=== PATIENT | male | born 1970 | race Caucasian/White ===

== ENCOUNTER 2018-10-04 08:15 | Emergency (ER) | payer OTHER ==
[2018-10-04 08:51] VITALS: BP 124/86
--- NOTE | 2018-10-04 08:56 | UC ---
Eye Complaint HPI - HPI Summary HPI Summary: Per roll panner: "Pt states that R eye has been sore for about a week, has been flushing it and that doesn't seem to help. No itchiness. No yellow discharge from eye, but seems to be tearing more than usual. Pt not able to see anything in his eye that would be causing it. The L eye is fine." -he was grinding something 1 week ago and felt like something went into his eye. hurts medially. -no diplopia or change in vision - History of Current Complaint Chief Complaint: UCEye Stated Complaint: RIGHT EYE CONCERN Time Seen by Provider: 10/04/18 08:55 Pain Intensity: 0 - Allergies/Home Medications Allergies/Adverse Reactions: Allergies Allergy/AdvReac Type Severity Reaction Status Date / Time No Known Allergies Allergy Verified 10/04/18 08:51 PMH/Surg Hx/FS Hx/Imm Hx Previously Healthy: Yes - Surgical History Surgical History: Yes Surgery Procedure, Year, and Place: hernia repair x 2 - Family History Known Family History: Positive: Hypertension - Social History Alcohol Use: None Substance Use Type: Marijuana Smoking Status (MU): Heavy Every Day Tobacco Smoker Type: Cigarettes Amount Used/How Often: 1/2 ppd Review of Systems All Other Systems Reviewed And Are Negative: Yes Constitutional: Positive: Negative Eyes: Positive: Eye Redness, Other - see above ENT: Positive: Negative Respiratory: Positive: Negative Cardiovascular: Positive: Negative Gastrointestinal: Positive: Negative Neurovascular: Positive: Negative Musculoskeletal: Positive: Negative Neurological: Positive: Negative Psychological: Positive: Negative Is Patient Immunocompromised?: No Physical Exam Triage Information Reviewed: Yes Appearance: Well-Appearing, No Pain Distress, Well-Nourished Vital Signs: Initial Vital Signs Temp 97.9 F 10/04/18 08:46 Pulse 75 10/04/18 08:46 Resp 18 10/04/18 08:46 BP 124/86 10/04/18 08:46 Pulse Ox 97 10/04/18 08:46 Eyes: Positive: Other: - small black FB located at 3 o'clock at periphery of iris w/ some mild scleral injection running medially. -floresein wood's lamp exam done after FB removed shows small 1 mm area of uptake. there is no bleeding of stain. no perforation. no bleeding ENT Exam: Normal ENT: Positive: Pharynx normal Neck exam: Normal Neck: Positive: Supple, Nontender, No Lymphadenopathy Respiratory Exam: Normal Respiratory: Positive: Lungs clear, Normal breath sounds, No respiratory distress, No accessory muscle use Cardiovascular Exam: Normal Cardiovascular: Positive: RRR Musculoskeletal Exam: Normal Neurological Exam: Normal Psychological Exam: Normal Skin Exam: Normal Eye Complaint Course/Dx - Course Course Of Treatment: -rt eye was tretaed w 1 gtt tetracaine. FB was very easily removed w/ tip of swab. tolerated very well. see exam for wood's lamp exam. FB was ~ 1 mm big. -pt prefers to see local ophtho - info given below. stressed improatnce of f/u in 2-3 days w/ pt. he understood em well adn is very agreeable. - Differential Dx/Diagnosis Differential Diagnosis/HQI/PQRI: Conjunctivitis, Corneal Abrasion, Foreign Body , Penetrating Injury Provider Diagnosis: Foreign body of right eye Discharge - Sign-Out/Discharge Documenting (check all that apply): Patient Departure All imaging exams completed and their final reports reviewed: No Studies - Discharge Plan Condition: Stable Disposition: HOME Prescriptions: Erythromycin TOPICAL GEL* [Erythromycin OPTH OINT*] 1 applic TOPICAL TID 5 Days #1 oint Patient Education Materials: Eye Foreign Body (ED) Referrals: No Primary Care Phys,NOPCP [Primary Care Provider] - Yen Avery MD [Medical Doctor] - 3 Days Additional Instructions: Please make sure to follow up with the eye doctor as directed. The antibiotic ointment will help prevent any infection adn will help sooth the eye. There is a little scratch in your cornea from where the foreign body was embedded. You should gop to the ER with any change in your vision or pain. - Billing Disposition and Condition Condition: STABLE Disposition: Home
[2018-10-04] MEDS ORDERED: Tetracaine 0.5% OPTH.SOL 4 ML* 1 DROP BTL RIGHT EYE ONE (09:13)
[2018-10-04] MEDS ORDERED: Fluorescein Sodium TOPICAL* 1 MG TEST STRIP OPHTHALMIC ONE (09:13)
[2018-10-04] MEDS ORDERED: Erythromycin OPTH OINT* APPLIC OINT RIGHT EYE ONE (09:14)
== END 2018-10-04 09:38 | disposition home or self-care (01) ==
LOC: UCCORT 08:15
DX: T15.91XA Foreign body on external eye, part unspecified, right eye, initial encounter (principal); X58.XXXA Exposure to other specified factors, initial encounter; Y92.9 Unspecified place or not applicable
CPT/HCPCS: 65220; 99202; A9270-GY; G0463

== ENCOUNTER 2019-04-11 08:15 | Emergency (ER) | payer OTHER ==
[2019-04-11 08:38] VITALS: BP 145/95
[2019-04-11] MEDS ORDERED: Tetracaine 0.5% OPTH.SOL 4 ML* 1 DROP BTL LEFT EYE ONE (09:01)
--- NOTE | 2019-04-11 10:41 | UC ---
Eye Complaint HPI - HPI Summary HPI Summary: Pt presents with c/o of FB in left eye that occurred last evening. 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 Pt states that his tetanus is UTD. - History of Current Complaint Chief Complaint: UCEye Stated Complaint: LEFT EYE FOREIGN MATERIAL Time Seen by Provider: 04/11/19 08:56 Hx Obtained From: Patient Onset/Duration: Sudden Onset, Still Present Timing: Constant Severity Initially: Moderate Severity Currently: Moderate Pain Intensity: 0 Pain Scale Used: 0-10 Numeric Location of Injury: Other - cornea Character: Sharp, Foreign Body Sensation Aggravating Factor(s): Light, Blinking Associated Signs And Symptoms: Positive: Drainage (Clear) Related History: Foreign Body - Risk Factors Penetrating Injury Risk Factor: Projectile Globe Rupture Risk Factors: Negative Acute Glaucoma Risk Factors: Negative Optic Artery Occlusion Risk Factors: Negative - Allergies/Home Medications Allergies/Adverse Reactions: Allergies Allergy/AdvReac Type Severity Reaction Status Date / Time No Known Allergies Allergy Verified 04/11/19 08:38 PMH/Surg Hx/FS Hx/Imm Hx Previously Healthy: Yes - Surgical History Surgical History: Yes Surgery Procedure, Year, and Place: hernia repair x 2 - Family History Known Family History: Positive: Hypertension - Social History Occupation: Employed Full-time Lives: With Family Alcohol Use: None Substance Use Type: Excessive Caffeine, Marijuana Substance Use Comment - Amount & Last Used: occasionally smoke Smoking Status (MU): Heavy Every Day Tobacco Smoker Type: Cigarettes Amount Used/How Often: 1/2 ppd Have You Smoked in the Last Year: Yes - Immunization History Vaccination Up to Date: Yes Review of Systems All Other Systems Reviewed And Are Negative: Yes Constitutional: Positive: Negative Skin: Positive: Negative Eyes: Positive: Drainage - clear, Other - FB left eye ENT: Positive: Negative Respiratory: Positive: Negative Cardiovascular: Positive: Negative Gastrointestinal: Positive: Negative Genitourinary: Positive: Negative Motor: Positive: Negative Neurovascular: Positive: Negative Musculoskeletal: Positive: Negative Neurological: Positive: Negative Psychological: Positive: Negative Is Patient Immunocompromised?: No Physical Exam Triage Information Reviewed: Yes Appearance: Well-Appearing Vital Signs: Initial Vital Signs Temp 98.6 F 04/11/19 08:33 Pulse 74 04/11/19 08:33 Resp 18 04/11/19 08:33 BP 145/95 04/11/19 08:33 Pulse Ox 98 04/11/19 08:33 Vital Signs Reviewed: Yes Eye Exam: Other Eyes: Positive: Other: - FB visible on left eye/ iris ~ 9 o'clock position ENT Exam: Normal Neck exam: Normal Respiratory: Positive: No respiratory distress Musculoskeletal Exam: Normal Neurological Exam: Normal Psychological Exam: Normal Skin Exam: Normal Eye Complaint Course/Dx - Course Course Of Treatment: left eye I placed 3 gtts of tetracaine opthalmic drops, attempted to remove FB with Q-tip and 18 guage needle. with 18 gauge needle, ~ 1/2 of metal was removed. I discussed this with the pt and I tried to get him an appointment at Dr. Walker' s office. They do not accept his insurance and the pt could not afford to pay out of pocket. Pt was then referred to ER in [place] and pt stated he would prefer to not go and would f/u with local carroting machine operator on Saturday and go to ER if symptoms worsen and pain intolerable. - Differential Dx/Diagnosis Differential Diagnosis/HQI/PQRI: Foreign Body, Penetrating Injury Provider Diagnosis: Foreign body of left eye Discharge ED - Sign-Out/Discharge Documenting (check all that apply): Patient Departure All imaging exams completed and their final reports reviewed: No Studies - Discharge Plan Condition: Stable Disposition: HOME Prescriptions: Ofloxacin 0.3% (Eye Drop) [Ocuflox OPTH 0.3% (Eye Drop)] 2 drop LEFT EYE Q4H #1 btl Patient Education Materials: Eye Foreign Body (ED) Referrals: Aime Castle OD [Doctor of Osteopathy] - As Soon As Possible No Primary Care Phys,NOPCP [Primary Care Provider] - Victoriano Collins MD [Medical Doctor] - If Needed Additional Instructions: Please follow up with an eye tree care foreman as soon as possible. - Billing Disposition and Condition Condition: STABLE Disposition: Home
== END 2019-04-11 09:46 | disposition home or self-care (01) ==
LOC: UCCORT 08:15
DX: T15.92XA Foreign body on external eye, part unspecified, left eye, initial encounter (principal); F17.210 Nicotine dependence, cigarettes, uncomplicated; X58.XXXA Exposure to other specified factors, initial encounter; Y92.9 Unspecified place or not applicable
CPT/HCPCS: 99212; A9270-GY; G0463